=== PATIENT | female | born 1995 | race Caucasian/White ===

== ENCOUNTER 2024-06-24 11:25 | Emergency (ER) | payer OTHER, SELFPAY ==
--- NOTE | ~2024-06-24 | XR_ITS ---
EXAMINATION: XR chest 2V DATE: 06/24/2024 12:13 INDICATION: Cough and wheezing and shortness of breath. TECHNIQUE: Frontal and lateral views of the chest were obtained. COMPARISON: None. FINDINGS: There is no pneumonia, pleural effusion, or pneumothorax. The heart size is normal. There i s mild chronic anterior wedging of 2 lower thoracic vertebral bodies. IMPRESSION: 1. No acute cardiopulmonary disease. Reviewed, dictated and finalized at location A. [employer]
[2024-06-24 11:36] VITALS: BP 130/73; PULSE 83; RESP 18; TEMP 36.7; O2SAT 100
--- NOTE | 2024-06-24 12:06 | ED_ITS ---
HPI - URI/Sore Throat General Chief Complaint: Upper Respiratory Infection Stated Complaint: cough Time Seen by Provider: 06/24/24 11:54 Source: patient and RN notes reviewed Mode of arrival: ambulatory Limitations: no limitations History of Present Illness HPI Narrative: Patient presents today complaining of 5 day history of intermittent wheezing, sore throat, cough, intermittent shortness of breath. She did have 1 episode of posttussive vomiting yesterday. States the wheezing has slightly improved since onset. Sore throat is worse with swallowing. Denies fever. She has take in some Tessalon Perle she had at home with some relief of her cough as well as some Zyrtec. History of tonsillectomy and adenectomy. Related Data Home Medications Medication Instructions Recorded Confirmed cetirizine 10 mg tablet (24Hour 10 mg PO DAILY 01/31/21 06/24/24 Allergy) Allergies Allergy/AdvReac Type Severity Reaction Status Date / Time No Known Allergies Allergy Verified 06/24/24 11:57 Review of Systems Review of Systems: CONSTITUTIONAL: Denies body aches, fever, chills, or sweats. EYES: Denies visual changes, redness, or discharge. ENT: Denies rhinorrhea, congestion, or otalgia.+ sore throat CARDIOVASCULAR: Denies chest pain, palpitations, or edema. RESPIRATORY: + cough, wheezing, shortness of breath GASTROINTESTINAL: Denies abdominal pain, nausea, or diarrhea.+ post-tussive vomiting GENITOURINARY: Denies dysuria or hematuria. SKIN: Denies rash, itching, or wounds. MUSCULOSKELETAL: Denies back pain, joint pain, or myalgia. NEUROLOGIC: Denies headache, numbness, tingling, or weakness. PSYCH: Denies depression or anxiety. [facility] Family History Family History Other Family history of type 2 diabetes mellitus Social History Social History Smoking status: Never smoker Alcohol intake: never Comments At time of signature, I have reviewed and agree with nursing past medical, surgical, social and family history unless otherwise noted. Please see nursing chart for further information. There is no relevant family history pertinent to the presenting complaint Exam Narrative: GENERAL: Well-appearing, well-nourished, and in no acute distress. HEAD: Normocephalic, atraumatic. EYES: EOMI. No redness or drainage. Conjunctivae normal. ENT: Mucous membranes pink and moist. Nares clear. No rhinorrhea. TMs normal bilaterally. Throat normal. Uvula midline. NECK: Normal AROM. Supple. No lymphadenopathy. CHEST: No respiratory distress. Clear to auscultation. HEART: Regular rate and rhythm. No murmur appreciated. EXTREMITIES: Normal range of motion. No edema. SKIN: Warm, dry, no rash. Capillary refill normal. Normal skin turgor. NEURO: No focal deficits. Alert and oriented x3. Gait steady. PSYCH: Normal affect. No signs of depression or anxiety. Course Course Level of Care: Express Care Visit Vital Signs Vital signs: Vital Signs Temperature 98.1 F 06/24/24 11:36 Pulse Rate 83 06/24/24 11:36 Respiratory Rate 18 06/24/24 11:36 Blood Pressure 130/73 06/24/24 11:36 Pulse Oximetry 100 06/24/24 11:36 Oxygen Delivery Room Air 06/24/24 11:36 Temperature 98.1 F 06/24/24 11:36 Pulse Rate 83 06/24/24 11:36 Respiratory Rate 18 06/24/24 11:36 Blood Pressure 130/73 06/24/24 11:36 Pulse Oximetry 100 06/24/24 11:36 Oxygen Delivery Room Air 06/24/24 11:36 Reviewed MDM - URI/Sore Throat MDM Narrative Medical decision making narrative: Rapid strep negative. Culture pending. Chest x-ray negative. Symptoms likely viral in etiology. Discussed [id number] medication use and duration of illness. Prescription for additional Tessalon Perles provided as well as an albuterol inhaler to use as needed. Anticipatory guidance given. Differential Diagnosis Differential diagnosis: Likely upper respiratory infection, viral infection, bronchitis, pharyngitis and other (Strep throat, pneumonia) Lab Data Attestation: I reviewed the patient's lab results. Imaging Data Radiologist's impression: ITS Impressions Chest X-Ray 06/24/24 12:16 IMPRESSION: 1. No acute cardiopulmonary disease. Critical Care Time Critical Care Time Critical Care Time: No Discharge Plan Discharge Clinical Impression: Viral syndrome Patient Disposition: Home, Self-Care Condition: Stable Instructions: Viral Syndrome (ED) Additional Instructions: Your strep test and chest x-ray are both negative today. Your symptoms are l ikely due to a viral illness, which is not treated with antibiotics. Virus symptoms can last for up to 7-10days. Take Tylenol or ibuprofen for pain or fever. Take the Tessalon Perles if needed for your cough. Rest and stay hydrated. Follow up with your PCP in 7 days if symptoms are not improving. Go to the ER immediately if you develop shortness of breath, difficulty swallowing, or any other concerning symptoms. Your blood pressure was elevated above 120/80 today at Urgent Care. This puts you above the threshold for follow up. Please schedule a followup visit with your personal physician as soon as possible, for further evaluation and treatment. Even blood pressure exceeding 120/80 may indicate pre-hypertension. Prescriptions: New benzonatate 200 mg capsule 200 mg PO TID PRN (Reason: cough) Qty: 20 0RF albuterol sulfate 90 mcg/actuation HFA aerosol inhaler 2 inh inhalation Q4-6H PRN (Reason: shortness of breath or wheezing) Qty: 8.5 0RF (DME) BreatheRite MDI Spacer Spacer See Rx Instructions .ROUTE .MEDSUPPLY Qty: 1 0RF Rx Instructions: As directed No Action cetirizine [24Hour Allergy] 10 mg tablet 10 mg PO DAILY Follow-up/Referrals: PHYSICIAN,CREATIVE WRITING TEACHER [Primary Care Provider] - Time of Disposition: 12:26
[2024-06-24 12:27] LABS: EDSTREPNEGPOS1 Negative (Negative)
== END 2024-06-24 12:35 | disposition home or self-care (01) ==
PROVIDERS: Emergency Provider Nurse Practitioner
DX: B34.9 Viral infection, unspecified (principal)
CPT/HCPCS: 71046; 87081; 87880; 99213; G0463